=== PATIENT | male | born 2000 | race Caucasian/White ===

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

== ENCOUNTER 2022-02-01 11:48 | Emergency (ER) | payer OTHER, SELFPAY ==
--- NOTE | ~2022-02-01 | XR_ITS ---
EXAMINATION: XR chest 2V DATE: 02/01/2022 12:52 INDICATION: Chest heaviness TECHNIQUE: PA and lateral views of the chest were obtained. COMPARISON: None FINDINGS: The lungs are clear with no focal airspace opacities, pulmonary edema, pleural effusion or pneumothor ax. The cardiomediastinal silhouette is normal. Visualized bones and soft tissues are unremarkable. IMPRESSION: 1. Normal chest radiograph. Reviewed, dictated and finalized at location A. IMPRESSION: 1. Normal chest radiograph.
--- NOTE | 2022-02-01 11:49 | ECG_ITS ---
Measurements Intervals Bonnie Rate: 80 P: 67 DE: 164 QRS: 85 QRSD: 97 T: 63 QT: 353 QTc: 409 Interpretive Statements SINUS RHYTHM WITH SINUS ARRHYTHMIA NO PREVIOUS ECG AVAILABLE FOR COMPARISON Electronically Signed On 02-01-2022 19:47:34 CDT by Luz Madrigal M.D.
[2022-02-01 11:59] VITALS: BP 165/95; PULSE 75; RESP 16; TEMP 36.5; O2SAT 100
--- NOTE | 2022-02-01 15:18 | ED.ANXIETY ---
HPI - Anxiety General Chief Complaint: Anxiety Stated Complaint: Anxiety Time Seen by Provider: 02/01/22 12:43 History of Present Illness HPI narrative: 21-year-old male presents stating that his chest feels weird he has had been feeling this way for a few days, which started after his uncle of a sudden heart attack at age 60. He is worried because his grandfather also of a heart attack at age 60. No palpitations, no real chest pain, he states he only has that weird feeling when he is not doing anything and is feeling anxious and preoccupied with the symptoms. No shortness of breath, cough Related Data Home Medications Medication Instructions Recorded Confirmed No Home Medications 11/03/19 11/03/19 Allergies Allergy/AdvReac Type Severity Reaction Status Date / Time No Known Allergies Allergy Verified 11/03/19 10:17 Review of Systems Review of Systems: CONST: No fever. HEENT: No sore throat C/V: Chest feeling weird RESP: No cough GI: No nausea/vomiting : No dysuria. M/S: No joint pain. SKIN: No rash. NEURO: [No headache or focal numbness or weakness] PSYCH: Anxious PMFSH Surgical History Surgical History S/P laparoscopic appendectomy Family History Family History Sibling Appendicitis Social History Social History Smoking status: Never smoker Alcohol intake: never Substance use: never Gender identity (if verbalized by the patient): Male Spiritual care concerns: No Exam Narrative: EXAMINATION OF ORGAN SYSTEMS/BODY AREAS: Constitutional: Vital signs per nursing GENERAL:[No acute distress, non-toxic appearing.] HEAD: Normal with no signs of head trauma. EYES: EOMI, conjunctiva normal ENT: Hearing grossly intact LUNGS: Nonlabored breathing. HEART: [Regular rate and rhythm]\ EXT: Normal range of motion SKIN: [No rashes or lesions.] NEURO: [Alert and oriented x 3. No gross focal sensory or strength deficits.] PSYCH: Normal affect Course Course Emergency Course: 21-year-old male presenting with feeling of chest feeling weird, vital signs stable here, he is well-appearing with nonlabored respirations, normal cardiopulmonary exam. EKG on my interpretation does not reveal any arrhythmia or signs of ischemia, is normal sinus rhythm with normal intervals. Chest x-ray obtained is also unremarkable. I have low concern for any emergent diagnoses, doubt PE without signs of DVT or risk factors, patient is reassured, he does have elevated blood pressure here which I suspect is likely from anxiety but I will give him followup to a PCP for further evaluation as needed. Return precautions provided. Vital Signs Vital signs: Vital Signs Temperature 97.7 F 02/01/22 11:59 Pulse Rate 75 02/01/22 11:59 Respiratory Rate 16 02/01/22 11:59 Blood Pressure 165/95 H 02/01/22 11:59 Pulse Oximetry 100 02/01/22 11:59 Temperature 97.7 F 02/01/22 11:59 Pulse Rate 75 02/01/22 11:59 Respiratory Rate 16 02/01/22 11:59 Blood Pressure 165/95 H 02/01/22 11:59 Pulse Oximetry 100 02/01/22 11:59 Discharge Plan Discharge Clinical Impression: Anxiety, Palpitation Patient Disposition: Home, Self-Care Condition: Stable Additional Instructions: You can follow up with the doctor; feel free to return if your symptoms worsen. Prescriptions: No Action No Home Medications Follow-up/Referrals: Jose Stone MD [Physician] - 2 Days PHYSICIAN NOT ON STAFF,NONSTAFF [Primary Care Provider] -
== END 2022-02-01 13:41 | disposition home or self-care (01) ==
PROVIDERS: Emergency Provider Emergency Medicine
DX: F41.9 Anxiety disorder, unspecified (principal); R00.2 Palpitations
CPT/HCPCS: 71046; 93005; 99283

== ENCOUNTER 2023-01-27 16:52 | Outpatient (CLI) | payer OTHER, SELFPAY ==
--- NOTE | ~2023-01-27 | CT_ITS ---
EXAMINATION: CT brain wo con DATE: 01/27/2023 17:09 INDICATION: New onset headache. TECHNIQUE: Computed tomography (CT) of the head was performed without intravenous contrast. The mA wa s adjusted according to patient size. Iterative reconstruction technique was employed. The dose-lengt h product was 605.33 mGy-cm. COMPARISON: None FINDINGS: There is no intracranial hemorrhage, acute infarction, or abnormal intracranial mass lesion . The ventricles are normal in size. There is mucosal thickening in the paranasal sinuses. The mastoi d air cells are normal. IMPRESSION: 1. Normal brain. Reviewed, dictated and finalized at location E. IMPRESSION: 1. Normal brain.
== END 2023-01-27 16:53 | disposition home or self-care (01) ==
LOC: ANHIMG 16:54
PROVIDERS: PCP Family Medicine; Visit Provider Family Medicine
DX: R51.9 Headache, unspecified (principal)
CPT/HCPCS: 70450

== ENCOUNTER 2024-09-25 07:22 | Emergency (ER) | payer BC, SELFPAY ==
--- NOTE | ~2024-09-25 | XR_ITS ---
Clinical Indication: Chest pain PA and lateral views of the chest: Comparison: 02/01/2022 Findings: The lungs are clear, without evidence of focal consolidation or pleural effusion. Cardiome diastinal silhouette is within normal limits. Bones and soft tissues are unremarkable. Impression: Normal chest. Reviewed, dictated and finalized at location . Impression: Normal chest.
--- OUTSIDE RECORDS SUMMARY | 2024-09-25 07:24 | XMS_ITS | Clinical Summary ---
Author Organization [address] Address [address] [place] [id number] Care Team Providers Care Podiatric Technician Name Role Phone Medardo Li MD Primary Care Provider [phone] Allergies No known active allergies Medications loratadine (Claritin) 10 mg tablet Take 1 tablet (10 mg total) by mouth daily 08/11/2022 Active cholecalciferol (Vitamin D3) 1,000 unit capsule Take 1 capsule (1,000 Units total) by mouth daily Active ascorbic acid (vitamin C) 100 mg tablet Take 1 tablet (100 mg total) by mouth daily Active docosahexaenoic acid-epa (Fish OiL) 120-180 mg capsule Take by mouth Active cyanocobalamin (Vitamin B-12) 1,000 mcg tabletIndicatio ns:Prevention of Vitamin B12 Deficiency Take 1 tablet (1,000 mcg total) by mouth daily Active magnesium oxide (MAG-OX) 250 mg (150.8 mg elemental) tabletIndicatio ns:hypomagnesem ia Take 1 tablet (250 mg total) by mouth daily Active escitalopram (LEXAPRO) 10 mg tablet Take 1 tablet (10 mg total) by mouth daily 30 tablet 5 04/20/2023 Active Active Problems Problem Noted Date Diagnosed Date Well adult exam 04/29/2023 Assessment & Plan (04/29/2023 8:45 AM TOBACCO GRADER): A(n) yearly well adult visit has been performed today. Candelario Gu is not up to date on screening tests. He is in need of Cholesterol screening. He is not up to date on needed preventative vaccinations; He is in need of Tdap/Td and Meningococcal. We discussed healthy lifestyle habits, educational material has been given. Medications reviewed, changes documented as per the medical record and discussed with patient along with risks vs benefits. Return in 1 year Bronchitis 12/27/2022 New onset headache 12/03/2022 PRATEEK (generalized anxiety disorder) 08/11/2022 Overview (08/11/2022): will continue Lexapro Encounter for medical examination to establish c are 05/05/2022 Assessment & Plan (05/05/2022 4:18 PM TOBACCO GRADER): A(n) initial well visit to establish care has been performed today. Candelario Gu is not up to date on screening tests. He is in need of Cholesterol screening- ordered. He is not up to date on needed preventative vaccinations; He is in need of Influenza, HPV and Covid-19 (booster). We discussed healthy lifestyle habits, educational material has been given. Medications reviewed, changes documented as per the medical record and discussed with patient along with risks vs benefits. Immunizations Immunization Administration Dates Next Due DTaP 08/11/2006, 3,02/22/2002,2001 ,2001 Hep B / HiB 08/23/2002,2001,2001 IPV 08/11/2006,08/23/2002,2001 ,2001 Influenza, Unspecified 12/03/2022(Deferr ed: Patient Refused),12/03/2022(Deferred: Patient Refused),05/05/2022(Deferred: Patient Refused),04/12/2022(Deferred: Patient Refused),04/12/2021(Deferred: Patient Refused),04/12/2021(Deferred: Patient Refused) MMR 08/23/2002 MMRV 10/20/2006 Meningococcal Conjugate (Menveo) 01/09/2019 Meningococcal MCV4P (Menactra) 10/03/2015 Tdap 08/02/2012 Varicella 10/20/2006 Surgical History Surgery Date Site/Laterality Comments ORAL SURGERY 04/12/2018 - 04/11/2019 APPENDECTOMY 04/12/2019 - 04/11/2020 Family History Medical History Relation Name Comments No Known Problems Brother Diabetes Father Yunier Hypertension Father Yunier Heart attack Father's Brother Chilo Skin cancer Maternal Grandfather Skin cancer Maternal Grandmother Arthritis Mother Isamar Sudden Mother's Sister Diabetes Paternal Grandfather Nicko Heart attack Paternal Grandfather Nicko Alzheimer's disease Paternal Grandmother Amanda Rudolph No Known Problems Sister Relation Name Status Comments Brother Alive Father Yunier Alive Father's Brother Chilo Maternal Grandfather Alive Maternal Grandmother Alive Mother Isamar Alive Mother's Sister Paternal Grandfather Nicko Paternal Grandmother Amanda Rudolph Alive Sister Alive Social History Tobacco Use Types Packs/Day Years Used Date Smoking Tobacco: Never Smokeless Tobacco: Never AUDIT-C Answer Date Recorded Q1: How often do you have a drink containing alc ohol? 2-4 times a month 05/05/2022 Q2: How many drinks containi ng alcohol do you have on a typical day when you are drinking? 3 or 4 05/05/2022 Q3: How often do you have si x or more drinks on one occasion? Less than monthly 05/05/2022 PHQ-2 Answer Date Recorded PHQ-2 Total Score (If total score is 3 or more points, staff should administer the PHQ-9) 2 04/29/2023 Personal Safety Answer Date Recorded Getting School Help Needed Not on file 04/05 Sex and Gender Information Value Date Recorded Sex Assigned at Not on file Legal Sex Male 1:20 PM TOBACCO GRADER Gender Identity Not on file Sexual Orientation Not on file Obstetrics History Last Filed Vital Signs Vital Sign Reading Time Taken Comments Blood Pressure 138/80 05/27/2023 10:58 AM TOBACCO GRADER Pulse 80 05/27/2023 10:35 AM TOBACCO GRADER Temperature 36.7 C (98 F) 05/27/2023 10:35 AM TOBACCO GRADER Respiratory Rate 20 05/27/2023 10:35 AM TOBACCO GRADER Oxygen Saturation 98% 05/27/2023 10:35 AM TOBACCO GRADER Inhaled Oxygen Concentration - - Weight 89.8 kg (198 lb) 05/27/2023 10:35 AM TOBACCO GRADER Height 185.4 cm (6' 1) 05/27/2023 10:35 AM TOBACCO GRADER Body Mass Index 26.12 05/27/2023 10:35 AM TOBACCO GRADER Plan of Treatment Health Maintenance Due Date Last Done Comments Hepatitis C Screening 2001 HPV Vaccines (1 - Male 3-dose series) 2016 Meningococcal B Vaccine (1 of 2 - Standard) 2017 DTaP/Tdap/Td Vaccine (7 - Td or Tdap) 08/02/2022 08/02/2012, 08/11/2006, 02/14/2003, Additional history exists Covid-19 Vaccine (3 - season) 2023 08/01/2020, 07/09/2020 Depression Screening 04/29/2024 04/29/2023, 01/07/2023, 01/07/2023, Additional history exists Regular Well Visit/Exam 18-64 04/29/2024 04/29/2023, 05/05/2022 Influenza Vaccine (Season Ended) 2024 Hepatitis B Screening Completed 08/23/2002 , 2001, 2001 Varicella Vaccines Discontinued 10/20/2006, 10/20/2006 Pneumococcal vaccine <65 Aged Out No longer eligible based on patient's age to complete this topic Care Teams Podiatric Technician Relationship Specialty Start Date End Date Medardo Li MD [address] [place] [address] PCP - General Family Medicine 05/05/22
--- OUTSIDE RECORDS SUMMARY | 2024-09-25 07:24 | XMS_ITS | Referral Summary ---
Author Organization [address] Address [address] [place] [id number] Care Team Providers Care Ballast Cleaning Operator Name Role Phone Medardo Li MD Primary Care Provider [phone] Allergies No known active allergies Medications loratadine [...] 04/29/2023 Assessment & Plan (04/29/2023 8:45 AM DRAWING FRAME TENDER): A(n) yearly well adult visit has been [...] 05/05/2022 Assessment & Plan (05/05/2022 4:18 PM DRAWING FRAME TENDER): A(n) initial well visit to establish care [...] MCV4P (Menactra) 10/03/2015 Tdap 08/02/2012 Varicella 10/20/2006 Social History Tobacco Use Types Packs/Day Years [...] on file Legal Sex Male 1:20 PM DRAWING FRAME TENDER Gender Identity Not on file Sexual Orientation Not on file Last Filed Vital Signs Vital Sign Reading Time Taken Comments Blood Pressure 138/80 05/27/2023 10:58 AM DRAWING FRAME TENDER Pulse 80 05/27/2023 10:35 AM DRAWING FRAME TENDER Temperature 36.7 C (98 F) 05/27/2023 10:35 AM DRAWING FRAME TENDER Respiratory Rate 20 05/27/2023 10:35 AM DRAWING FRAME TENDER Oxygen Saturation 98% 05/27/2023 10:35 AM DRAWING FRAME TENDER Inhaled Oxygen Concentration - - Weight 89.8 kg (198 lb) 05/27/2023 10:35 AM DRAWING FRAME TENDER Height 185.4 cm (6' 1) 05/27/2023 10:35 AM DRAWING FRAME TENDER Body Mass Index 26.12 05/27/2023 10:35 AM DRAWING FRAME TENDER Plan of Treatment Not on file Care Teams Ballast Cleaning Operator Relationship Specialty Start Date End Date Medardo Li MD [address] [place] [id number] PCP - General Family Medicine 05/05/22
[2024-09-25 07:25] VITALS: BP 189/90; PULSE 97; RESP 18; TEMP 37.1; O2SAT 100
--- NOTE | 2024-09-25 07:34 | ED_ITS ---
HPI - General Adult General Chief complaint: Fall Stated complaint: rib injury Time Seen by Provider: 09/25/24 07:26 History of Present Illness HPI narrative: 24-year-old male presenting to the emergency department for evaluation for left- sided chest wall pain. Patient was playing hockey last night and did take a head. Patient denies striking his head denies loss consciousness. Patient does report pain with movement the left-sided ribs. Patient denies any associated abdominal pain. Patient does have a prior history anxiety and hypertension related to the anxiety. Patient also has a prior history of appendectomy. Related Data Home Medications ?Medication ?Instructions ?Recorded ?Confirmed ?Last Taken ?Type No Home Medications 11/03/19 11/03/19 Unknown History Allergies Allergy/AdvReac Type Severity Reaction Status Date / Time No Known Allergies Allergy Verified 09/25/24 07:28 Review of Systems Review of Systems: All systems reviewed & are unremarkable except as noted in HPI and below PMFSH Surgical History Surgical History S/P laparoscopic appendectomy Family History Family History Sibling Appendicitis Social History Social History Smoking status: Never smoker Alcohol intake: never Substance use: never Gender identity (if verbalized by the patient): Male Spiritual care concerns: No Exam Narrative: APPEARANCE: Well appearing, no pain, no distress, well-nourished. HEAD: normocephalic, atraumatic. EYES: PERRLA/EOMI, conjunctivae clear. NOSE: Normal no drainage EARS:TMS clear with good light reflex. THROAT: Pharynx clear, no exudate. NECK: Supple. No adenopathy, no masses. RESPIRATORY: Airway patent, respirations nonlabored. Clear to auscultation bilaterally, no rales, rhonchi, wheezing. CARDIOVASCULAR: Regular rate and rhythm without murmurs rubs or gallops. ABDOMINAL: Soft, nontender, nondistended, normal bowel sounds. No left upper quadrant tenderness to palpation MUSCULOSKELETAL: Left-sided chest wall tenderness to palpation NEURO: Alert. Cranial nerves II through XII intact. Good gait. Good coordination SKIN: Warm, dry. Normal Color Course Vital Signs Vital signs: Vital Signs Temperature 98.8 F 06/16/25 07:25 Pulse Rate 97 09/25/24 07:25 Respiratory Rate 18 09/25/24 07:25 Blood Pressure 189/90 H 09/25/24 07:25 Pulse Oximetry 100 09/25/24 07:25 Oxygen Delivery Room Air 09/25/24 07:25 Temperature 98.8 F 09/25/24 07:25 Pulse Rate 103 H 09/25/24 08:16 Respiratory Rate 18 09/25/24 08:16 Blood Pressure 174/98 H 09/25/24 08:16 Pulse Oximetry 99 09/25/24 08:16 Oxygen Delivery Room Air 09/25/24 07:25 Medical Decision Making MDM Narrative Medical decision making narrative: 24-year-old male presenting to the emergency department for evaluation for left- sided chest wall pain. X-rays were negative for acute fracture dislocation. No evidence of pneumonia pneumothorax. Suspect rib contusion versus occult rib fracture. Patient was provided a symptoms primary. Patient declined medications for pain control. Patient does not appear to be in significant distress. Patient was updated results of his workup was comfortable plan for discharge and close follow-up. Differential Diagnosis Differential Diagnosis: Pneumonia, rib contusion, rib fracture, pulmonary contusion Vital Signs Vital Signs: Vital Signs Temperature 98.8 F 09/25/24 07:25 Pulse Rate 97 09/25/24 07:25 Respiratory Rate 18 09/25/24 07:25 Blood Pressure 189/90 H 09/25/24 07:25 Pulse Oximetry 100 09/25/24 07:25 Oxygen Delivery Room Air 09/25/24 07:25 Temperature 98.8 F 09/25/24 07:25 Pulse Rate 103 H 09/25/24 08:16 Respiratory Rate 18 09/25/24 08:16 Blood Pressure 174/98 H 09/25/24 08:16 Pulse Oximetry 99 09/25/24 08:16 Oxygen Delivery Room Air 09/25/24 07:25 Discharge Plan Discharge Clinical Impression: Contusion of rib on left side Patient Disposition: Home Condition: Stable Instructions: Antibiotic Form, How to Use an Incentive Spirometer (ED), Rib Contusion (ED) Additional Instructions: Tylenol and ibuprofen for pain control. Incentive spirometer as directed to help prevent pneumonia. Worsening symptoms including worsening shortness of breath, uncontrolled pain and high fever please call or return to the emergency department. Have close follow-up with your primary care physician. Patient Language: Japanese Prescriptions: No Action No Home Medications Follow-up/Referrals: Jen,Medardo Benites MD [Primary Care Provider] -
[2024-09-25 08:16] VITALS: BP 174/98; PULSE 103; RESP 18; O2SAT 99
== END 2024-09-25 08:17 | disposition home or self-care (01) ==
PROVIDERS: Emergency Provider Emergency Medicine; PCP Family Medicine
DX: S20.212A Contusion of left front wall of thorax, initial encounter (principal); W51.XXXA Accidental striking against or bumped into by another person, initial encounter
CPT/HCPCS: 71046; 99283